=== PATIENT | female | born 1970 | race Caucasian/White ===

== ENCOUNTER → 2018-04-20 | Outpatient (CLI) | payer MEDICARE ==
[~2018-04-20] MED LIST: ATROPINE 1 MG/10 ML DISP.SYRINGE.; EPINEPHrine 1 MG/ML VIAL; LIDOCAINE 1% Multi-Dose 50 ML VIAL.
== END | disposition home or self-care (01) ==
LOC: PCVCINTER 11:20
DX: Z45.2 Encounter for adjustment and management of vascular access device (principal)
CPT/HCPCS: 36558; 76937; 77001; C1751; J0171; J0461; J1644

== ENCOUNTER → 2018-04-30 | Outpatient (CLI) | payer MEDICARE ==
[~2018-04-30] MED LIST changes: -ATROPINE 1 MG/10 ML DISP.SYRINGE.; -EPINEPHrine 1 MG/ML VIAL; +IOHEXOL 300 MG/ML 50 ML VIAL.
== END | disposition home or self-care (01) ==
LOC: PCVCINTER 14:51
DX: Z45.2 Encounter for adjustment and management of vascular access device (principal)
CPT/HCPCS: 36558; 36581; 36589; 76937; 77001; C1751; C1769; J1644; Q9967

== ENCOUNTER → 2018-09-04 | Outpatient (CLI) | payer MEDICARE ==
[~2018-09-04] MED LIST changes: +ALTEPLASE 2 MG VIAL ONE; -IOHEXOL 300 MG/ML 50 ML VIAL.; -LIDOCAINE 1% Multi-Dose 50 ML VIAL.; +WATER FOR INJECTION,STERILE 10 ML IJ ONE
== END | disposition home or self-care (01) ==
LOC: PCVCINTER 09:39
PROVIDERS: ATTEND Nuclear Medicine Nuclear Cardiology
DX: Z45.2 Encounter for adjustment and management of vascular access device (principal)
CPT/HCPCS: 96523; J2997